=== PATIENT | male | born 1980 | race Caucasian/White ===

== ENCOUNTER 2021-05-07 12:59 | Outpatient (CLI) | payer OTHER ==
--- NOTE | 2021-05-07 14:03 | SLEEP CARE CONSULTATION ---
Information from patient questionnaire entered by Flaco Chappell MA. I have reviewed and concur with the information entered by Flaco Chappell MA. This document represents the service I personally performed and the decisions made by , Chaya Saldana ARNP. History of Present Illness Service Date and Time: 05/07/2021 1259 Reason for Visit: New patient (ONSET 03/2016, PRIOR STUDY 2 YEARS AGO, ) Chief Complaint: reports: Insomnia, Unrefreshed sleep, Frequent awakenings at night Date of Onset: 8 YEARS Usual bedtime: 10 PM Time it takes to fall asleep: 10 MINUTE Snores at night: Yes Observed to quit breathing while asleep: No Sleeps alone due to snoring: No Number of times waking at night: 2-3 Reasons for waking at night: reports: Pain, Bathroom. denies: Choking, Gasping for air Toss, Turn, or Twitch while sleeping: Yes Recalls having dreams: Yes (rarely, sometimes) Usually gets out of bed at: 0500; he will sometimes sleep till 6 am but not often Feels refreshed in the morning: No Morning headache: Yes (SOMETIMES; 2-3 times a week, last 10-15 minutes, no meds) Sleepy or fatigued during the day: No Ever fallen asleep while driving: No Takes day naps: No Dreams during day naps: Yes Additional HPI information: I had the pleasure of seeing GIUSEPPE JAMES today regarding the possibility of him having a sleep disorder. His current complaints are frequent night awakenings, insomnia and unrefreshed sleep. He states that he lays down to sleep about 10 PM and falls to sleep in about 10 minutes. He states he will wake up early, before his alarm, in morning and not be able to go back to sleep. He does not feel rested at that time, he feels awake, "like I can't go back to sleep". He will feel frustrated and it can take 1-2 hour to go back to sleep if he wakes up between 2-3 AM. If it is after [id number] then he will just get up because his alarm goes off about 0500. He has been told that he snores occasionally but not normally. 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 He has worked with a therapist for his sleep problems. He tried limiting time in bed and other aspects with little, if any, improvement in his sleep. 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 Patient is Single and lives in . Have you smoked in the past 12 months: No Alcohol use: Yes Alcohol amount and frequency: 1 - WEEKLY Caffeine use: Yes Caffeine amount and frequency: 1 (4-6 oz coffee) X DAILY Family History Family history of sleep disordered breathing: Yes Family Hx Sleep Apnea: Sibling: Snoring, Sleep apnea - Treated Allergies and Home Medications Known drug allergies: No Drug allergies reviewed: Yes Home medication list reviewed: Yes (no daily medications ) Allergy and home medication list: Supplements to help with sleep: Magnesium Threonate Trina fallon Review of Systems Cardiovascular: denies: high blood pressure Gastrointestinal: denies: heartburn Urinary: reports: frequency Neurological: reports: headaches Psychiatric: reports: anxiety, depression Musculoskeletal: reports: joint pain, neck pain, back pain, muscle pain or cramping Physical Exam Vital signs obtained and entered by: JAIRON Chappell Blood Pressure: 128/76 (RIGHT, PULSE 73, RESP 18, ) Cuff size: wrist Heart Rate: 72 O2 Saturation: 97 (PAPER MASK) Height: 5 ft 9 in Weight: 168 lb (PT CLOTHES) Body Mass Index: 24.7 BMI Classification: Healthy weight Neck circumference: 15.75 (inches) Mouth and throat: narrow oropharynx Soft palate: long Hard palate: normal Uvula: normal Uvula visualization: 0% Mallampati Class IV Tongue: enlarged in size with teeth martinez on lateral edges Tonsils: small Neck: normal w/o lymphadenopathy or thyromegaly Heart: regular rate and rhythm Lungs: clear bilaterally Impression and Plan 1. Suspected Obstructive Sleep Apnea-Hypopnea Syndrome, as suggested by a history of irregular snoring, morning headache, frequent awakening during the night, unrefreshed sleep and cognitive impairment. Narrow oropharynx and obesity are common predisposing factors for obstructive sleep apnea-hypopnea syndrome. I recommend proceeding to polysomnography to confirm the diagnosis and to assess severity. If the patient has significant sleep disordered breathing, a manual CPAP titration study will also be performed to find the optimal treatment pressure. I informed the patient of what the sleep studies involve and after some discussion, obtained agreement to proceed. The pathophysiology of obstructive sleep apnea-hypopnea syndrome was discussed with the patient and health risks of cardiovascular and cerebrovascular disease if not treated. Risks of drowsy driving discussed in detail and patient advised to avoid long distance driving and to pin puller at the first sign of drowsiness. Patient agreed to plan. * Schedule polysomnography * Avoid long distance driving or driving when feeling sleepy. * Avoid alcohol, sedative and muscle relaxant around bedtime. * Maintain a healthy weight. * Review instructions provided by trained office staff on how to prepare for the sleep study. * Return for follow-up after sleep study completed. Counseling Topics: Weight control Visit Type: In Office Time Spent with Patient (minutes): 33 Provider Statement: I spent 100% of the Face to Face Visit with the patient with greater than 50% spent counseling the patient and coordination of care.
[2021-05-07 14:04] VITALS: BP 128/76
== END 2021-05-07 13:00 | disposition home or self-care (01) ==
LOC: SC 12:59
PROVIDERS: ATTEND Nurse Practitioner Family
DX: R06.83 Snoring (principal); R51.9 Headache, unspecified; G47.8 Other sleep disorders; R41.89 Other symptoms and signs involving cognitive functions and awareness
CPT/HCPCS: 99203; 99212